=== PATIENT | male | born 1955 | race Caucasian/White ===

== ENCOUNTER → 2017-01-25 | Outpatient (CLI) | payer OTHER ==
[~2017-01-25] MED LIST: AMLODIPINE BESY10 MG; Antivert PO; CALCIUM 500 MG1 EACH PO; CALCIUM600 M1 PO; Flomax PO; HYDROCHLOROTHIA25 MG PO; Hydrodiuril,Oretic,E PO; MONOPRIL10 MG PO; MONOPRIL20 MG PO; MONOPRIL40 MG PO; MULTI VITAMIN1 EACH PO; NAPROSYN500 MG PO; Norvasc PO; PERCOCET 5/31 TABLET PO; VALIUM5 MG PO; VITAMIN D31000 UNI2 PO
== END | disposition home or self-care (01) ==
LOC: EKG 15:51
DX: Z01.810 Encounter for preprocedural cardiovascular examination (principal); K64.4 Residual hemorrhoidal skin tags
CPT/HCPCS: 93005

== ENCOUNTER 2017-02-05 07:30 | Day surgery (SDC) | payer OTHER ==
[~2017-02-05] VITALS: Ht 172.7 cm; Wt 84.8 kg
[2017-02-05 08:08] VITALS: BP 133/72
[2017-02-05] MEDS ORDERED: TRAMADOL HCL50 MG PO (11:13)
[2017-02-05] MEDS ORDERED: COLACE100 MG PO (11:13)
[2017-02-05 11:48] VITALS: BP 120/69
[2017-02-05 12:39] VITALS: BP 116/62
== END 2017-02-05 13:27 | disposition home or self-care (01) ==
LOC: SDC 07:30
DX: K64.4 Residual hemorrhoidal skin tags (principal); I10 Essential (primary) hypertension; Z88.8 Allergy status to other drugs, medicaments and biological substances; Z88.6 Allergy status to analgesic agent
CPT/HCPCS: 88304; J2250; J2405; J3010; S0020